=== PATIENT | female | born 1965 | race Caucasian/White ===

== ENCOUNTER 2016-12-10 11:42 | Day surgery (SDC) | payer BC ==
--- NOTE | ~2016-12-10 | EGD ---
EGD REPORT [facility] [address] [place] [address] NAME: WENDI GARCIA : 65 STATUS : REG [facility]#: [id number] AGE: 51 ADM/REG DATE : 12/10/16 MR#: [id number] REPORT SERV DATE: 12/10/16 DICTATED BY: JACINTO CENTENO DATE: 12/10/16 REPORT STATUS : Draft [facility]ANS[facility]ED BY: [facility] DATE: 12/10/16 [facility] Patient Name: Wendi Garcia Date of : 1965 Attending MD: JACINTO CENTENO, Procedure Date No Time: 12/10/2016 Procedure: Upper EUS Indications: Elevated amylase, Elevated lipase, Epigastric abdominal pain Referring MD: COREY STILL Medicines: Monitored Anesthesia Care Complications: No immediate complications. Estimated blood loss: None. Procedure: Pre-Anesthesia Assessment: - ASA Grade Assessment: II - A patient with mild systemic disease. After obtaining informed consent, the endoscope was passed under direct vision. Throughout the procedure, the patient's blood pressure, pulse, and oxygen saturations were monitored continuously. The Endoscope was introduced through the mouth, and advanced to the second part of duodenum. The GIF [id number] was introduced through the mouth, and advanced to the second part of duodenum. Findings: Endoscopic Finding : The examined esophagus was endoscopically normal. Patchy mild inflammation characterized by erythema was found in the entire examined stomach. Biopsies were taken with a cold forceps for histology. Verification of patient identification for the specimen was done. Estimated blood loss was minimal. The cardia and gastric fundus were normal on retroflexion. Patchy mild inflammation characterized by erythema was found in the duodenal bulb. The 2nd part of the duodenum was normal. Biopsies were taken with a cold forceps for histology. Verification of patient identification for the specimen was done. Estimated blood loss was minimal. Endosonographic Finding : Pancreas divisum was suspected. Endosonographic imaging of the pancreas showed no chronic pancreatitis, no cyst/pseudocyst, no mass and no parenchymal abnormalities. The pancreatic duct had a normal endosonographic appearance in the pancreatic head. No lymphadenopathy seen. There was no sign of significant endosonographic abnormality in the EGD REPORT [address] [address] NAME: WENDI GARCIA : [birth year] STATUS : REG [facility] PAT#: [id number] AGE: 51 ADM/REG DATE : 12/10/16 MR#: [id number] REPORT SERV DATE: 12/10/16 DICTATED BY: JACINTO CENTENO DATE: 12/10/16 REPORT STATUS : Draft TRANSCRIBED BY: [employer] DATE: 12/10/16 common bile duct. An unremarkable gallbladder was identified. There was no sign of significant endosonographic abnormality in the examined duodenum. Endosonographic images of the stomach were unremarkable. There was no sign of significant endosonographic abnormality in the esophagus. Impression: - Normal esophagus. - Gastritis. Biopsied. - Duodenitis. - Normal 2nd part of the duodenum. Biopsied. - Pancreas divisum was suspected. - The pancreatic duct had a normal endosonographic appearance in the pancreatic head. - There was no sign of significant pathology in the common bile duct. - There was no sign of significant pathology in the examined duodenum. - Endosonographic images of the stomach were unremarkable. - There was no sign of significant pathology in the esophagus. Recommendation: - Return to previous diet. - Continue present medications. - Await path results. Procedure Code(s): --- Professional --- 28500, Esophagogastroduodenoscopy, flexible, transoral; with endoscopic ultrasound examination, including the esophagus, stomach, and either the duodenum or a surgically altered stomach where the jejunum is examined distal to the anastomosis Diagnosis Code(s): --- Professional --- K29.70, Gastritis, unspecified, without bleeding K29.80, Duodenitis without bleeding R74.8, Abnormal levels of other serum enzymes R10.13, Epigastric pain CPT copyright 2013 [employer]. All rights reserved. The codes documented in this report are preliminary and upon mechanical field engineer review may be revised to meet current compliance requirements. EGD REPORT [facility] [address] [address] NAME: WENDI GARCIA : [birth year] STATUS : REG [facility] PAT#: [id number] AGE: 51 ADM/REG DATE : 12/10/16 MR#: [id number] REPORT SERV DATE: 12/10/16 DICTATED BY: JACINTO CENTENO DATE: 12/10/16 REPORT STATUS : Draft TRANSCRIBED BY: [employer] DATE: 12/10/16 JACINTO CENTENO, 12/10/2016 2:24 PM Number of Addenda: 0 Note Initiated On: 12/10/2016 1:33 PM Scope Withdrawal Time 0 hours 0 minutes 0 seconds [address] [id number]
--- NOTE | ~2016-12-10 | EGD ---
EGD REPORT [facility] [address] [place] [address] NAME: WENDI GARCIA : 65 STATUS : REG [facility]#: [id number] AGE: 51 ADM/REG DATE : 12/10/16 MR#: [id number] REPORT SERV DATE: 12/10/16 DICTATED BY: JACINTO CENTENO DATE: 12/10/16 REPORT STATUS : Draft TRANSCRIBED BY: [employer] DATE: 12/10/16 Endoscopy Center Patient Name: Wendi Garcia Date of : 1965 Attending MD: JACINTO CENTENO, Procedure Date No Time: 12/10/2016 Procedure: Colonoscopy Indications: Screening for colorectal malignant neoplasm Referring MD: COREY STILL Medicines: Monitored Anesthesia Care Complications: No immediate complications. Estimated blood loss: None. Procedure: Pre-Anesthesia Assessment: - ASA Grade Assessment: II - A patient with mild systemic disease. After I obtained informed consent, the scope was passed under direct vision. Throughout the procedure, the patient's blood pressure, pulse, and oxygen saturations were monitored continuously. The CF [id number] was introduced through the anus and advanced to the cecum, identified by appendiceal orifice and ileocecal valve. The colonoscopy was performed without difficulty. The patient tolerated the procedure well. The quality of the bowel preparation was good. Findings: The perianal and digital rectal examinations were normal. The entire examined colon appeared normal. Impression: - The entire examined colon is normal. Recommendation: - Patient has a contact number available for emergencies. The signs and symptoms of potential delayed complications were discussed with the patient. Return to normal activities tomorrow. Written discharge instructions were provided to the patient. - Return to previous diet. - Continue present medications. - Repeat colonoscopy in 10 years for screening purposes. Procedure Code(s): --- Professional --- 45232, Colonoscopy, flexible, proximal to splenic flexure; diagnostic, with or without collection of specimen(s) by brushing or washing, with or without colon decompression (separate procedure) EGD REPORT [facility] [address] [address] NAME: WENDI GARCIA : [birth year] STATUS : REG [facility]#: [id number] AGE: 51 ADM/REG DATE : 12/10/16 MR#: [id number] REPORT SERV DATE: 12/10/16 DICTATED BY: JACINTO CENTENO DATE: 12/10/16 REPORT STATUS : Draft TRANSCRIBED BY: [employer] DATE: 12/10/16 Diagnosis Code(s): --- Professional --- Z12.11, Encounter for screening for malignant neoplasm of colon CPT copyright 2013 [employer]. All rights reserved. The codes documented in this report are preliminary and upon surgical coder review may be revised to meet current compliance requirements. JACINTO CENTENO, 12/10/2016 2:25 PM Number of Addenda: 0 Note Initiated On: 12/10/2016 1:34 PM Scope Withdrawal Time 0 hours 11 minutes 23 seconds [id number] [address]
[~2016-12-10 11:42] MED LIST: I40 PO; LEVOTHYROXIN150 MCG PO; PRAVACHOL40 MG PO; ULTRAM50 PO
== END 2016-12-10 23:59 | disposition home or self-care (01) ==
LOC: DMU 11:42
PROVIDERS: Internal Medicine Gastroenterology
PROC: 0DB68ZX Excision of Stomach, Via Natural or Artificial Opening Endoscopic, Diagnostic (ICD-10-PCS; 2016-12-10)
PROC: 0DB98ZX Excision of Duodenum, Via Natural or Artificial Opening Endoscopic, Diagnostic (ICD-10-PCS; 2016-12-10)
PROC: 0DJD8ZZ Inspection of Lower Intestinal Tract, Via Natural or Artificial Opening Endoscopic (ICD-10-PCS; principal; 2016-12-10 14:30)
PROC: 0DJ08ZZ Inspection of Upper Intestinal Tract, Via Natural or Artificial Opening Endoscopic (ICD-10-PCS; 2016-12-10 14:30)
DX: Z12.11 Encounter for screening for malignant neoplasm of colon (principal); K29.50 Unspecified chronic gastritis without bleeding; K29.80 Duodenitis without bleeding; K58.9 Irritable bowel syndrome, unspecified; K21.9 Gastro-esophageal reflux disease without esophagitis; I10 Essential (primary) hypertension; E03.9 Hypothyroidism, unspecified; Z79.899 Other long term (current) drug therapy
CPT/HCPCS: 88305; C1725